=== PATIENT | male | born 1990 ===

== ENCOUNTER 2017-03-29 16:11 | Emergency (ER) | payer BC ==
[2017-03-29 16:26] VITALS: BMI 28.0
[2017-03-29 16:28] VITALS: RESP 18
--- NOTE | 2017-03-29 17:05 | C.PDOC ---
History Of Present Illness Patient is a 26 y/o M presenting with dizziness and headache. Patient reports that he has been working 16 hour day at his job, only sleeping 5 hours at night and only eating 1 meal a day. He reports that he has felt fatigued and took today off work. He reports that he has had mild intermittent headache and some dizziness, so he presented to ED for "checkup." Denies vomiting. Denies nausea /vomiting, chest pain, shortness of breath. Denies trauma. Time Seen by Provider: 03/29/17 16:35 Chief Complaint (Nursing): Headache Past Medical History Vital Signs: Last Vital Signs Temp 98.0 F 03/29/17 17:34 Pulse 84 03/29/17 17:34 Resp 18 03/29/17 17:34 BP 110/68 03/29/17 17:34 Pulse Ox 99 03/29/17 17:47 Family History: States: Unknown Family Hx - Social History Hx Alcohol Use: Yes Hx Substance Use: No - Immunization History Hx Tetanus Toxoid Vaccination: No Hx Influenza Vaccination: No Hx Pneumococcal Vaccination: No Review Of Systems Constitutional: Negative for: Fever, Chills Eyes: Negative for: Pain, Vision Change Cardiovascular: Negative for: Chest Pain, Palpitations, Orthopnea, Edema, Light Headedness Respiratory: Negative for: Cough, Shortness of Breath, SOB with Excertion Gastrointestinal: Negative for: Nausea, Vomiting, Abdominal Pain, Diarrhea, Constipation Musculoskeletal: Negative for: Neck Pain Neurological: Positive for: Headache, Dizziness. Negative for: Weakness, Numbness, Incoordination, Change in Speech, Altered Mental Status Physical Exam - Physical Exam Appears: Well, Non-toxic, No Acute Distress Skin: Normal Color, Warm, Dry Head: Atraumatic, Normacephalic Eye(s): bilateral: Normal Inspection, PERRL, EOMI Ear(s): Bilateral: Normal Nose: Normal Oral Mucosa: Moist Tongue: Normal Appearing Lips: Normal Appearing Gingiva: Normal Appearing Throat: No Erythema, No Exudate Neck: Normal ROM Chest: Symmetrical Cardiovascular: Rhythm Regular Gastrointestinal/Abdominal: Soft, No Tenderness, No Distention Back: Normal Inspection, No CVA Tenderness Extremity: Normal ROM Neurological/Psych: Oriented x3, Normal Cranial Nerves Gait: Steady ED Course And Treatment O2 Sat by Pulse Oximetry: 99 Medical Decision Making Medical Decision Making: Will give meclizine and motrin and reevaluate 5:27 On reevaluation, patient reports symptoms are improved. He reports that he really feels that symptoms have been triggered by lifestyle and reports that he will increase his food intake and work on improving his sleep habits. He was offered medication on dc but refusing saying that he does not think it is necessary Disposition - Disposition Disposition: HOME/ ROUTINE Disposition Time: 17:27 Condition: GOOD Additional Instructions: Follow-up with PMD. Return to ED if condition worsens. Get sleep, eat regular meals, manage stress. Forms: Work Excuse - Clinical Impression Clinical Impression: Headache
[2017-03-29 17:34] VITALS: BP 110/68; PULSE 84; TEMP 98
[2017-03-29 17:47] VITALS: O2SAT 99
== END 2017-03-29 17:41 | disposition home or self-care (01) ==
LOC: C.ER 16:11
DX: R51 Headache (principal)

== ENCOUNTER 2017-08-06 11:54 | Emergency (ER) | payer BC ==
[2017-08-06 11:54] VITALS: BMI 28.0
[2017-08-06 12:22] VITALS: RESP 18; TEMP 98.8; O2SAT 98
[2017-08-06] MEDS ORDERED: Sodium Chloride 0.9% 1,000 ML IV ONE (13:09)
--- NOTE | 2017-08-06 13:19 | C.PDOC ---
History Of Present Illness 26 y/o male 5 day hx of cough, vomiting, body aches, and diarrhea. The patient denies no recent travel , no sick contacts, and no sustained improvement of medication. Time Seen by Provider: 08/06/17 12:38 Chief Complaint (Nursing): GI Problem History Per: Patient History/Exam Limitations: no limitations Onset/Duration Of Symptoms: Days Current Symptoms Are (Timing): Still Present Associated Symptoms: Fever, Nausea, Vomiting, Diarrhea, Other (body ache). denies: Chills, Constipation Exacerbating Factors: Cough Recent travel outside of the [place]: No Additional History Per: Patient Past Medical History Reviewed: Historical Data, Nursing Documentation, Vital Signs Vital Signs: Last Vital Signs Temp 98.8 F 08/06/17 15:43 Pulse 82 08/06/17 15:43 Resp 18 08/06/17 15:43 BP 100/61 08/06/17 15:43 Pulse Ox 98 08/06/17 15:43 Surgical History: No Surg Hx Family History: States: No Known Family Hx - Social History Hx Alcohol Use: Yes Hx Substance Use: No - Immunization History Hx Tetanus Toxoid Vaccination: No Hx Influenza Vaccination: No Hx Pneumococcal Vaccination: No Review Of Systems Except As Marked, All Systems Reviewed And Found Negative. Constitutional: Positive for: Fever Cardiovascular: Negative for: Chest Pain Respiratory: Positive for: Cough. Negative for: Shortness of Breath Gastrointestinal: Positive for: Nausea, Vomiting, Diarrhea. Negative for: Abdominal Pain Skin: Negative for: Rash Physical Exam - Physical Exam Appears: Non-toxic Skin: Warm, Dry Head: Atraumatic, Normacephalic Eye(s): bilateral: Normal Inspection Oral Mucosa: Moist Throat: Normal Neck: Supple Chest: Symmetrical, No Tenderness Cardiovascular: Rhythm Regular Respiratory: Normal Breath Sounds, No Rales, No Rhonchi Gastrointestinal/Abdominal: Soft, No Tenderness, No Guarding, No Rebound Back: No CVA Tenderness Extremity: No Tenderness, No Calf Tenderness, Capillary Refill (2<sec. ) Neurological/Psych: Oriented x3 Gait: Steady ED Course And Treatment - Laboratory Results Result Diagrams: 08/06/17 13:38 08/06/17 13:38 O2 Sat by Pulse Oximetry: 98 (RA) - Radiology CXR: Viewed By Me - Other Rad chest X-ray X-Ray: Viewed By Me Interpretation: HISTORY: SOB. COMPARISON: None available. TECHNIQUE: Chest PA and lateral. FINDINGS: Examination limited by habitus. LUNGS: No focal consolidation. Please note that chest x-ray has limited sensitivity for the detection of pulmonary masses. PLEURA: No significant pleural effusion identified. No definite pneumothorax . CARDIOVASCULAR: The cardiomediastinal silhouette appears within normal limits of size. OSSEOUS STRUCTURES: No acute osseous abnormality identified. VISUALIZED UPPER ABDOMEN: Unremarkable. OTHER FINDINGS: None. IMPRESSION: No focal consolidation, significant pleural effusion, or definite pneumothorax identified. Progress Note: Blood work, UA, and Chest X- Ray were performed. Patient was given IV Fluids, Zofran, and Toradol for treatment. Patient is afebrile and salivating for PO intake. The patient is no longer vomiting and feels better. The patient is going home and is diagnosed with viral illness. The patient is advised to have a follow up with his PCP for further evaluation. Disposition Counseled Patient/Family Regarding: Studies Performed, Diagnosis, Need For Followup, Rx Given - Disposition Referrals: [facility] [Outside] Disposition: HOME/ ROUTINE Disposition Time: 15:28 Condition: IMPROVED Additional Instructions: follow up with your doctor or medical clinic in 2 days call to make an appointment take medications as needed return to ER if symptoms worsens or progress Prescriptions: Hydrocodone/Chlorpheniramine [Tussionex] 5 ml PO QPM #50 ml Naproxen [Naprosyn] 500 mg PO BID PRN #16 tab PRN Reason: Pain, Moderate (4-7) Ondansetron ODT [Zofran ODT] 4 mg PO TID PRN #12 odt PRN Reason: Nausea/Vomiting Instructions: Viral Syndrome (ED) Forms: [facility] (Burkinan), General Discharge Instructions - Clinical Impression Clinical Impression: Viral illness - Scribe Statement The provider has reviewed the documentation as recorded by the Scribe Jonelle Lewis
[2017-08-06] MEDS ORDERED: Sodium Chloride 0.9% 1,000 ML ONE (13:20)
--- NOTE | 2017-08-06 13:26 | RAD ---
HISTORY: SOB COMPARISON: None available. TECHNIQUE: Chest PA and lateral FINDINGS: Examination limited by habitus. LUNGS: No focal consolidation. Please note that chest x-ray has limited sensitivity for the detection of pulmonary masses. PLEURA: No significant pleural effusion identified. No definite pneumothorax . CARDIOVASCULAR: The cardiomediastinal silhouette appears within normal limits of size. OSSEOUS STRUCTURES: No acute osseous abnormality identified. VISUALIZED UPPER ABDOMEN: Unremarkable. OTHER FINDINGS: None. IMPRESSION: No focal consolidation, significant pleural effusion, or definite pneumothorax identified.
[2017-08-06 13:42] LABS: BASO % 0.6 % (0.0-2.0); EOS # 0.3 K/uL (0.0-0.7); HEMOGLOBIN 15.3 g/dL (12.0-18.0); LYMPH # 1.5 K/uL (1.0-4.3); LYMPH % 26.8 % (20.0-40.0); MEAN CELL VOLUME 83.7 fL (80.0-94.0); MEAN CORPUSCULAR HEMOGLOBIN 28.7 pg (27.0-31.0); MEAN CORPUSCULAR HGB CONC 34.3 g/dL (33.0-37.0); MEAN PLATELET VOLUME 9.7 fL (7.2-11.7); MONO # 1.1 K/uL (0.0-0.8); MONO % 19.7 % (0.0-10.0); NEUT # 2.6 K/uL (1.8-7.0); NEUT % 47.9 % (50.0-75.0); NRBC % 0.1 % (0.0-2.0); RBC 5.33 Mil/uL (4.40-5.90); RED CELL DISTRIBUTION WIDTH 13.3 % (11.5-14.5); WHITE BLOOD COUNT 5.5 K/uL (4.8-10.8)
[2017-08-06 14:09] LABS: ALB/GLOB RATIO 1.2 (1.0-2.1); ALBUMIN 4.3 g/dL (3.5-5.0); ALT/SGPT 20 U/L (21-72); AST/SGOT 25 U/L (17-59); BLOOD UREA NITROGEN 9 mg/dL (9-20); CALCIUM 8.7 mg/dl (8.6-10.4); GFR AFRICAN-AMERICAN > 60; GFR NON-AFRICAN AMERICAN > 60
[2017-08-06 15:07] LABS: SQUAMOUS EPITHIAL < 1 /hpf (0-5); URINE BACTERIA RARE (<OCC); URINE BILIRUBIN NEGATIVE (NEGATIVE); URINE BLOOD 2+ (NEGATIVE); URINE CLARITY Clear (Clear); URINE GLUCOSE (UA) NORMAL (Normal); URINE LEUKOCYTE ESTERASE NEG Leu/uL (Negative); URINE NITRATE NEGATIVE (NEGATIVE); URINE PROTEIN 1+ mg/dL (NEGATIVE)
[2017-08-06 15:11] LABS: URINE COLOR YELLOW (YELLOW)
[2017-08-06 15:44] VITALS: BP 100/61; PULSE 82
== END 2017-08-06 15:50 | disposition home or self-care (01) ==
LOC: C.ER 11:54
DX: B34.9 Viral infection, unspecified (principal)
CPT/HCPCS: 71046; 80053; 81001; 85025; 87804; 96361; 96374; 96375; 99285; J1885; J2405; J7040

== ENCOUNTER 2017-10-24 10:36 | Emergency (ER) | payer BC ==
[2017-10-24 10:57] VITALS: BMI 27.3
[2017-10-24 11:01] VITALS: RESP 18; O2SAT 99
--- NOTE | 2017-10-24 11:32 | C.PDOC ---
History Of Present Illness 27yo male, presents to ED with complaints of sore throat, headache, vomiting and "feeling weak" for the past 3 days. Patient states he has been working a lot of overtime and feels "run down". Patient denies any fever, chills, chest pain, shortness of breath. No other medical complaints. Time Seen by Provider: 10/24/17 10:56 Chief Complaint (Nursing): Headache History Per: Patient History/Exam Limitations: no limitations Onset/Duration Of Symptoms: Days (3) Current Symptoms Are (Timing): Still Present Severity: Mild Quality: Aching Past Medical History Reviewed: Historical Data, Nursing Documentation, Vital Signs Vital Signs: Last Vital Signs Temp 98.3 F 10/24/17 13:55 Pulse 82 10/24/17 13:55 Resp 18 10/24/17 13:55 BP 116/70 10/24/17 13:55 Pulse Ox 99 10/24/17 13:55 - Medical History PMH: No Chronic Diseases Surgical History: No Surg Hx Family History: States: Unknown Family Hx - Social History Hx Alcohol Use: Yes Hx Substance Use: No - Immunization History Hx Tetanus Toxoid Vaccination: No Hx Influenza Vaccination: No Hx Pneumococcal Vaccination: No Review Of Systems Except As Marked, All Systems Reviewed And Found Negative. Constitutional: Positive for: Fever, Sweats. Negative for: Chills ENT: Positive for: Throat Pain Cardiovascular: Negative for: Chest Pain Respiratory: Negative for: Shortness of Breath Gastrointestinal: Positive for: Vomiting Genitourinary: Negative for: Dysuria Neurological: Positive for: Headache Physical Exam - Physical Exam Appears: Non-toxic, No Acute Distress Skin: Normal Color, Warm, Dry Head: Atraumatic, Normacephalic Eye(s): bilateral: Normal Inspection, PERRL, EOMI Ear(s): Bilateral: Normal Nose: Normal Oral Mucosa: Moist Throat: Erythema Neck: Normal ROM, Supple Lymphatic: Adenopathy (anterior cervical lypmhadenopathy) Chest: Symmetrical Cardiovascular: Rhythm Regular Respiratory: Normal Breath Sounds Gastrointestinal/Abdominal: Normal Exam, No Tenderness Neurological/Psych: Oriented x3 Gait: Steady ED Course And Treatment - Laboratory Results Result Diagrams: 10/24/17 11:57 10/24/17 11:57 Lab Interpretation: No Acute Changes O2 Sat by Pulse Oximetry: 99 (RA) Pulse Ox Interpretation: Normal Progress Note: Treated with IVF NSS and toradol. Strep test (-). Urine (+) WBC , (+) bacteria. Treated with bactrim DS X1. On re-evaluation feeling better, lungs clear andomen soft Reassessment Condition: Improved Medical Decision Making Medical Decision Making: Plan: -- CMP -- CBC -- Lipase -- Toradol 30 mg IVP -- Zofran 4mg PO -- IV Fluids -- Rapid strep Disposition Counseled Patient/Family Regarding: Studies Performed, Diagnosis, Need For Followup, Rx Given - Disposition [facility]Outside[facility] Disposition: HOME/ ROUTINE Disposition Time: 14:00 Condition: STABLE Prescriptions: Sulfamethoxazole/Trimethoprim [Bactrim DS 800 mg-160 mg] 1 tab PO BID #14 tab Instructions: Urinary Tract Infections in Adults, Fever, Adult (DC) Forms: [facility] (Tamazight), Work Excuse - Clinical Impression Clinical Impression: UTI (urinary tract infection) - 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 - Scribe Statement The provider has reviewed the documentation as recorded by the Scribe (Delaney Donnelly) Provider Attestation: All medical record entries made by the Scribe were at my direction and personally dictated by me. I have reviewed the chart and agree that the record accurately reflects my personal performance of the history, physical exam, medical decision making, and the department course for this patient. I have also personally directed, reviewed, and agree with the discharge instructions and disposition.
[2017-10-24] MEDS: Sodium Chloride 0.9% 1,000 ML IV ONE (11:45)
[2017-10-24 12:03] LABS: BASO # 0.1 K/uL (0.0-0.2); BASO % 0.5 % (0.0-2.0); EOS # 0.3 K/uL (0.0-0.7); EOS % 2.3 % (0.0-4.0); HEMOGLOBIN 14.7 g/dL (12.0-18.0); LYMPH % 17.9 % (20.0-40.0); MEAN CORPUSCULAR HEMOGLOBIN 28.7 pg (27.0-31.0); MEAN CORPUSCULAR HGB CONC 34.6 g/dL (33.0-37.0); MEAN PLATELET VOLUME 9.7 fL (7.2-11.7); MONO % 9.3 % (0.0-10.0); NEUT # 7.7 K/uL (1.8-7.0); RBC 5.12 Mil/uL (4.40-5.90)
[2017-10-24 12:07] LABS: SQUAMOUS EPITHIAL < 1 /hpf (0-5); URINE BILIRUBIN NEGATIVE (NEGATIVE); URINE BLOOD 2+ (NEGATIVE); URINE CLARITY Clear (Clear); URINE COLOR Straw (YELLOW); URINE GLUCOSE (UA) NORMAL (Normal); URINE PROTEIN NEGATIVE (NEGATIVE); URINE UROBILINOGEN NORMAL mg/dL (0.2-1.0)
[2017-10-24 12:19] LABS: URINE LEUKOCYTE ESTERASE 1+ Leu/uL (Negative)
[2017-10-24 12:24] LABS: ALB/GLOB RATIO 1.2 (1.0-2.1); ALBUMIN 4.5 g/dL (3.5-5.0); ALT/SGPT 17 U/L (21-72); AST/SGOT 24 U/L (17-59); BLOOD UREA NITROGEN 10 mg/dL (9-20); CALCIUM 8.9 mg/dl (8.6-10.4); GFR AFRICAN-AMERICAN > 60; GFR NON-AFRICAN AMERICAN > 60; LIPASE 39 U/L (23-300)
[2017-10-24] MEDS: Tmp-Smz 800 mg-160 mg DS Tab PO STA (13:56)
[2017-10-24] MEDS ORDERED: Tmp-Smz 800 mg-160 mg DS Tab ONE (14:00)
[2017-10-24 14:01] VITALS: BP 116/70; PULSE 82; TEMP 98.3
== END 2017-10-24 14:05 | disposition home or self-care (01) ==
LOC: C.ER 10:36
DX: N39.0 Urinary tract infection, site not specified (principal)
CPT/HCPCS: 80053; 81001; 83690; 85025; 87070; 87430; 96361; 96374; 96375; 99285; J1885; J2405; J7040

== ENCOUNTER 2017-12-25 10:50 | Emergency (ER) | payer BC ==
[2017-12-25 10:50] VITALS: BMI 27.3
[2017-12-25 10:54] VITALS: PULSE 87; RESP 16; TEMP 98.3; O2SAT 98
[2017-12-25 11:17] VITALS: BP 119/80
--- NOTE | 2017-12-25 12:00 | C.PDOC ---
History Of Present Illness 27 year old male presents to the ED for evaluation after sustaining an injury to his right thumb. Patient states a door slammed onto his right thumb while he was on vacation eight days ago. Patient reports he was unable to see a doctor at the time. He denies any other injuries as well as active bleeding and extremity numbness/weakness. Time Seen by Provider: 12/25/17 11:23 Chief Complaint (Nursing): Upper Extremity Problem/Injury History Per: Patient History/Exam Limitations: no limitations Onset/Duration Of Symptoms: Days (8) Current Symptoms Are (Timing): Still Present Quality: "Pain" Additional History Per: Patient Past Medical History Reviewed: Historical Data, Nursing Documentation, Vital Signs Vital Signs: Last Vital Signs Temp 98.3 F 12/25/17 10:53 Pulse 87 12/25/17 10:53 Resp 16 12/25/17 10:53 BP 119/80 12/25/17 11:16 Pulse Ox 98 12/25/17 14:12 - Medical History PMH: No Chronic Diseases Surgical History: No Surg Hx Family History: States: Unknown Family Hx - Social History Hx Alcohol Use: Yes Hx Substance Use: No - Immunization History Hx Tetanus Toxoid Vaccination: No Hx Influenza Vaccination: No Hx Pneumococcal Vaccination: No Review Of Systems Musculoskeletal: Positive for: Other (right thumb injury ) Neurological: Negative for: Weakness, Numbness Physical Exam - Physical Exam Appears: Non-toxic, No Acute Distress Skin: Normal Color, Warm, Dry Extremity: Normal ROM, Capillary Refill (less than 2 seconds ), Other (50% subungal hematoma to right thumb. positive swelling, tenderness and ecchymosis to distal aspect of right thumb. PIP joint intact ) Pulses: Right Radial: Normal Neurological/Psych: Oriented x3, Normal Speech, Normal Cognition, Normal Sensation ED Course And Treatment O2 Sat by Pulse Oximetry: 98 (on RA) Pulse Ox Interpretation: Normal - Other Rad right hand XR X-Ray: Interpreted by Me, Viewed By Me, Read By Radiologist Interpretation: PROCEDURE: Right Thumb radiographs. HISTORY: PAIN. COMPARISON: None. TECHNIQUE: AP radiograph of the right hand, as well as spot oblique and lateral images of thumb were obtained. FINDINGS: RIGHT THUMB : Normal right thumb, without fracture or focal lesion. Fifth metacarpal shaft deformity consistent with old healed trauma here. JOINTS: Normal. SOFT TISSUES: Normal. OTHER FINDINGS: None. IMPRESSION: Normal right thumb radiographs. Fifth metacarpal shaft deformity consistent with old healed trauma here Medical Decision Making Medical Decision Making: Progress: Right hand XR ordered and reviewed. Xrays are negative for fracture Disposition - Disposition Referrals: Daiana Josue MD [Staff Provider] - Disposition: HOME/ ROUTINE Disposition Time: 12:04 Condition: FAIR Additional Instructions: Keep the wound covered. Return if worsened. 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 - Scribe Statement The provider has reviewed the documentation as recorded by the Scribe (Mellissa Olea) All medical record entries made by the Scribe were at my direction and personally dictated by me. I have reviewed the chart and agree that the record accurately reflects my personal performance of the history, physical exam, medical decision making, and the department course for this patient. I have also personally directed, reviewed, and agree with the discharge instructions and disposition. Procedures - Nail Trephination Consent Obtained: Verbal Consent Time Out: Yes ([id number]) Location (Finger): Right, Thumb Sterile Prep: Betadine Method of Drainage: Nail Cautery Procdure Successful: Yes Patient Tolerated Procedure: Well
--- NOTE | 2017-12-25 12:49 | RAD ---
PROCEDURE: Right Thumb radiographs. HISTORY: PAIN COMPARISON: None. TECHNIQUE: AP radiograph of the right hand, as well as spot oblique and lateral images of thumb were obtained. FINDINGS: RIGHT THUMB: Normal right thumb, without fracture or focal lesion. Fifth metacarpal shaft deformity consistent with old healed trauma here JOINTS: Normal. SOFT TISSUES: Normal. OTHER FINDINGS: None. IMPRESSION: Normal right thumb radiographs. Fifth metacarpal shaft deformity consistent with old healed trauma here
== END 2017-12-25 12:10 | disposition home or self-care (01) ==
LOC: C.ER 10:50
DX: S60.011A Contusion of right thumb without damage to nail, initial encounter (principal); W23.0XXA Caught, crushed, jammed, or pinched between moving objects, initial encounter